=== PATIENT | female | born 1930 | race Hispanic/Latino ===

== ENCOUNTER 2017-11-05 14:20 | Observation (INO) | payer MEDICARE ==
[2017-11-05] MEDS ORDERED: Sodium Chloride 0.9% 1,000 ML IV STA (14:57)
--- NOTE | 2017-11-05 15:20 | ED PDOC ---
Syncope/Near Syncope/Dizziness Time Seen by Provider: 11/05/17 14:32 Chief Complaint (Nursing): Syncope Chief Complaint (Provider): Syncope History Per: Patient History/Exam Limitations: no limitations Onset/Duration Of Symptoms: Other (prior to arrival) Current Symptoms Are (Timing): Still Present Additional Complaint(s): 87 y/o female with a PMHx of vertigo and HTN presenting for evaluation s/p witnessed syncopal episode prior to arrival. Patient states she was at a and after walking in the procession she sat down and began to have coffee. She says it was outside and she spent a lot of time under the sun. Patient states some time after sitting down she began to feel dizzy for a few seconds and then lost consciousness for a few seconds. Episode was witnessed by family. They deny any fall or head injury. Patient denies any chest pain or headache now or prior to episode. She denies any dizziness at this time, but confirms feeling dizzy prior the the syncopal episode. Of note, patient reports a history of leg swelling and states she was started on water pills 4-5 days ago. PMD: Dr. Herber Purcell Past Medical History Reviewed: Historical Data, Nursing Documentation, Vital Signs Vital Signs: Last Vital Signs Temp 97.0 F L 11/05/17 14:26 Pulse 69 11/05/17 14:26 Resp 22 11/05/17 14:26 BP 96/55 L 11/05/17 14:26 Pulse Ox 99 11/05/17 14:26 - Medical History PMH: HTN - Surgical History Surgical History: No Surg Hx - Family History Family History: States: Unknown Family Hx - Allergies Allergies/Adverse Reactions: Allergies Allergy/AdvReac Type Severity Reaction Status Date / Time No Known Allergies Allergy Verified 11/05/17 14:21 Review of Systems ROS Statement: Except As Marked, All Systems Reviewed And Found Negative Cardiovascular: Negative for: Chest Pain Neurological: Positive for: Other (syncope). Negative for: Headache, Dizziness Physical Exam - Reviewed Nursing Documentation Reviewed: Yes Vital Signs Reviewed: Yes - Physical Exam Appears: Positive for: Non-toxic, No Acute Distress Head Exam: Positive for: ATRAUMATIC, NORMAL INSPECTION, NORMOCEPHALIC Skin: Positive for: Normal Color, Warm, Dry. Negative for: Rash Eye Exam: Positive for: EOMI, Normal appearance, PERRL ENT: Positive for: Normal ENT Inspection Neck: Positive for: Normal, Painless ROM, Supple Cardiovascular/Chest: Positive for: Regular Rate, Rhythm. Negative for: Murmur Respiratory: Positive for: Normal Breath Sounds. Negative for: Respiratory Distress Gastrointestinal/Abdominal: Positive for: Normal Exam, Soft. Negative for: Tenderness Back: Positive for: Normal Inspection. Negative for: L CVA Tenderness, R CVA Tenderness, Vertebral Tenderness Extremity: Positive for: Pedal Edema (bilateral pitting edema to feet and ankles ) Neurologic/Psych: Positive for: Alert, Oriented (x3). Negative for: Motor/ Sensory Deficits - Laboratory Results Result Diagrams: 11/05/17 15:20 11/05/17 15:20 - ECG O2 Sat by Pulse Oximetry: 99 (RA) Pulse Ox Interpretation: Normal Medical Decision Making Medical Decision Makin:56 Impression: Syncope and dizziness. Differential diagnoses include, but are not limited to vasovagal syncope, orthostatic HTN, and r/o cardiac arrhythmias, UTI , and dehydration Plan: -CT Head w/o contrast -EKG -BMP -Troponin I -Urine dipstick -CBC w/ differential -Glucose, POC -1LNS -Reevaluation EKG: normal sinus rhythm, normal QRS, no ST elevations, rate 65 bpm 15:30 Patient reports current dizziness and 1 episode of vomiting. -Meclizine 25mg PO -Zofran 4mg IV -Reevaluation 17:49 Date of service: 11/05/2017 PROCEDURE: CT HEAD WITHOUT CONTRAST. HISTORY: syncope COMPARISON: None available. TECHNIQUE: Axial computed tomography images were obtained through the head/brain without intravenous contrast. Radiation dose: Total exam DLP = 855.1 mGy-cm. This CT exam was performed using one or more of the following dose reduction techniques: Automated exposure control, adjustment of the mA and/or kV according to patient size, and/or use of iterative reconstruction technique. FINDINGS: HEMORRHAGE: No intracranial hemorrhage. BRAIN: No mass effect or edema. Atrophy. Chronic microvascular ischemic changes. VENTRICLES: Unremarkable. No hydrocephalus. CALVARIUM: Unremarkable. PARANASAL SINUSES: Unremarkable as visualized. No significant inflammatory changes. MASTOID AIR CELLS: Unremarkable as visualized. No inflammatory changes. OTHER FINDINGS: Dysconjugate gaze. IMPRESSION: No acute intracranial pathology. Age-related changes. Dysconjugate gaze. ----- Scribe Attestation: Documented by Shivam Valverde, acting as a scribe for Jose Scott MD. Provider Scribe Attestation: All medical record entries made by the Scribe were at my direction and personally dictated by me. I have reviewed the chart and agree that the record accurately reflects my personal performance of the history, physical exam, medical decision making, and the department course for this patient. I have also personally directed, reviewed, and agree with the discharge instructions and disposition. Disposition - Clinical Impression Clinical Impression: Syncope, Dizziness, UTI (urinary tract infection) - Patient ED Disposition Is Patient to be Admitted: Yes Discussed With DrScarlett: Russ Oglesby Doctor Will See Patient In The: Hospital Counseled Patient/Family Regarding: Studies Performed, Diagnosis - Disposition Disposition Time: 18:00 Condition: FAIR - Pt Status Changed To: Hospital Disposition Of: Observation - POA Present On Arrival: None
[2017-11-05 15:36] LABS: BASO # 0.1 K/uL (0.0-0.2); BASO % 0.6 % (0.0-2.0); EOS % 0.3 % (0.0-4.0); HEMOGLOBIN 13.6 g/dL (12.0-16.0); LYMPH # 2.4 K/uL (1.0-4.3); LYMPH % 26.4 % (20.0-40.0); MEAN CELL VOLUME 86.9 fl (81.0-99.0); MEAN CORPUSCULAR HGB CONC 34.6 g/dL (33.0-37.0); MEAN PLATELET VOLUME 9.8 fl (7.2-11.7); MONO # 0.6 K/uL (0.0-0.8); MONO % 6.1 % (0.0-10.0); NEUT % 66.6 % (50.0-75.0); NRBC % 0.1 % (0.0-0.0); RBC 4.54 Mil/uL (3.80-5.20); RED CELL DISTRIBUTION WIDTH 13.4 % (11.5-14.5)
[2017-11-05 15:40] LABS: BLOOD UREA NITROGEN 24 mg/dl (7-17); CALCIUM 10.3 mg/dL (8.4-10.2); GFR NON-AFRICAN AMERICAN 53
[2017-11-05 16:58] LABS: SQUAMOUS EPITHIAL 1 /hpf (0-5); URINE BACTERIA RARE (<OCC); URINE BILIRUBIN NEGATIVE (NEGATIVE); URINE BLOOD NEGATIVE (NEGATIVE); URINE CLARITY SLIGHTY-CLOUDY (Clear); URINE COLOR YELLOW (YELLOW); URINE GLUCOSE (UA) NEG (Normal); URINE LEUKOCYTE ESTERASE SMALL Leu/uL (Negative); URINE PROTEIN NEGATIVE (NEGATIVE); URINE UROBILINOGEN 0.2-1.0 mg/dL (0.2-1.0)
--- NOTE | 2017-11-05 17:04 | CARD ---
APPROVED REPORT Date of service: 11/05/2017 EKG Measurement Heart [id number] <Conclusion> Normal sinus rhythm Normal ECG
[2017-11-05] MEDS ORDERED: cefTRIAXone (Rocephin) 1 gm Inj ONE (17:21)
--- NOTE | 2017-11-05 17:51 | CT ---
Date of service: 11/05/2017 PROCEDURE: CT HEAD WITHOUT CONTRAST. HISTORY: syncope COMPARISON: None available. TECHNIQUE: Axial computed tomography images were obtained through the head/brain without intravenous contrast. Radiation dose: Total exam DLP = 855.1 mGy-cm. This CT exam was performed using one or more of the following dose reduction techniques: Automated exposure control, adjustment of the mA and/or kV according to patient size, and/or use of iterative reconstruction technique. FINDINGS: HEMORRHAGE: No intracranial hemorrhage. BRAIN: No mass effect or edema. Atrophy. Chronic microvascular ischemic changes. VENTRICLES: Unremarkable. No hydrocephalus. CALVARIUM: Unremarkable. PARANASAL SINUSES: Unremarkable as visualized. No significant inflammatory changes. MASTOID AIR CELLS: Unremarkable as visualized. No inflammatory changes. OTHER FINDINGS: Dysconjugate gaze. IMPRESSION: No acute intracranial pathology. Age-related changes. Dysconjugate gaze.
[2017-11-06 08:28] VITALS: BP 111/63; RESP 20; TEMP 97.7; O2SAT 94
[2017-11-06] MEDS ORDERED: K-Lyte 25meq EF Tab PO SCH (09:00)
[2017-11-06] MEDS ORDERED: HCTZ/Losartan 12.5/50 Tab PO SCH (09:00)
[2017-11-06] MEDS ORDERED: Omega-3-Acid Ethyl Esters 1 GM Cap PO SCH (09:00)
[2017-11-06] MEDS ORDERED: Pravastatin Sodium 40 MG TAB PO SCH (09:00)
[2017-11-06 09:17] VITALS: PULSE 60
--- NOTE | 2017-11-06 09:33 | CP.PCM.HP ---
History of Present Illness - History of Present Illness History of Present Illness: HPI: 87 YO Female with PMHx of HTN, HLD and vertigo presented to [facility] ED after a syncopal episode. Pt states that she went to a festival/marathon yesterday where she walked for a long period of time under the hot sun. She sat down to drink her coffee when she felt very dizzy and felt faint. Witness by family member, no associated irregular movements, tongue biting, urinary or fecal incontinenc, no head trauma. Pt seen and examined by bedside this AM, son present. States that she feels well this AM, dizziness resolved and would like to go home. Denies chest pain, dyspnea, palpitations, n/v/d/c. Son by bedside states that pt had a carotid u/s a few months ago and everything was normal. PMD: Dr. Purcell PMHx: HTN, HLD, Vertigo SurgHx: denies SH: denies ETOH, smoking and illicit drug use Allergy: NKDA Present on Admission - Present on Admission Any Indicators Present on Admission: No Review of Systems - Constitutional Constitutional: absent: Headache - EENT Eyes: absent: Blurred Vision, Change in Vision - Cardiovascular Cardiovascular: absent: Chest Pain, Dyspnea - Respiratory Respiratory: absent: Cough, Dyspnea - Gastrointestinal Gastrointestinal: absent: Abdominal Pain - Genitourinary Genitourinary: absent: Dysuria - Musculoskeletal Musculoskeletal: absent: Abnormal Gait, Muscle Weakness - Neurological Neurological: Dizziness, Syncope Past Patient History - Past Medical History & Family History Past Medical History?: Yes - Past Social History Smoking Status: Never Smoked Alcohol: None Drugs: Denies - CARDIAC Hx Cardiac Disorders: Yes Hx Hypercholesterolemia: Yes Hx Hypertension: Yes - PULMONARY Hx Respiratory Disorders: No - NEUROLOGICAL Hx Neurological Disorder: No - HEENT Hx HEENT Problems: No - RENAL Hx Chronic Kidney Disease: No - ENDOCRINE/METABOLIC Hx Endocrine Disorders: No - HEMATOLOGICAL/ONCOLOGICAL Hx Blood Disorders: No - INTEGUMENTARY Hx Dermatological Problems: No - MUSCULOSKELETAL/RHEUMATOLOGICAL Hx Musculoskeletal Disorders: No Hx Falls: No - GASTROINTESTINAL Hx Gastrointestinal Disorders: No - GENITOURINARY/GYNECOLOGICAL Hx Genitourinary Disorders: No - PSYCHIATRIC Hx Psychophysiologic Disorder: No Hx Substance Use: No - SURGICAL HISTORY Hx Surgeries: No - ANESTHESIA Hx Anesthesia: No Hx Anesthesia Reactions: No Hx Malignant Hyperthermia: No Has any member of the family had a problem w/ anesthesia?: No Meds Home Medications: Home Medication List Medication Instructions Recorded Confirmed Type Meclizine [Meclizine*] 25 mg PO Q8 PRN #30 tab 11/06/17 Rx Nitrofurantoin Macrocrystals 100 mg PO Q12 #14 cap 11/06/17 Rx [Macrobid] Allergies/Adverse Reactions: Allergies Allergy/AdvReac Type Severity Reaction Status Date / Time No Known Allergies Allergy Verified 11/05/17 14:21 Physical Exam - Constitutional Appears: No Acute Distress - Head Exam Head Exam: NORMAL INSPECTION - Eye Exam Eye Exam: EOMI, Normal appearance - ENT Exam ENT Exam: Mucous Membranes Moist - Respiratory Exam Respiratory Exam: Clear to Auscultation Bilateral. absent: Wheezes - Cardiovascular Exam Cardiovascular Exam: REGULAR RHYTHM, +S1, +S2 Additional comments: no carotid murmur - GI/Abdominal Exam GI & Abdominal Exam: Normal Bowel Sounds, Soft. absent: Tenderness - Extremities Exam Extremities exam: Positive for: normal inspection - Neurological Exam Neurological exam: Alert, Oriented x3 Results - Vital Signs Recent Vital Signs: Last Vital Signs Temp 97.7 F 11/06/17 08:27 Pulse 60 11/06/17 09:15 Resp 20 11/06/17 08:27 BP 111/63 11/06/17 09:15 Pulse Ox 94 L 11/06/17 08:27 - Labs Result Diagrams: 11/05/17 15:20 11/05/17 15:20 Labs: Laboratory Results - last 24 hr 11/05/17 11/05/17 11/05/17 14:32 15:20 15:20 WBC 9.0 RBC 4.54 Hgb 13.6 Hct 39.4 MCV 86.9 MCH 30.0 MCHC 34.6 RDW 13.4 Plt Count 301 MPV 9.8 Neut % (Auto) 66.6 Lymph % (Auto) 26.4 [place] % (Auto) 6.1 Eos % (Auto) 0.3 Baso % (Auto) 0.6 Neut # (Auto) 6.0 Lymph # (Auto) 2.4 [place] # (Auto) 0.6 Eos # (Auto) 0.0 Baso # (Auto) 0.1 Sodium 142 Potassium 3.5 L Chloride 104 Carbon Dioxide 20 L Anion Gap 22 H BUN 24 H Creatinine 1.0 Est GFR ( Amer) > 60 Est GFR (Non-Af Amer) 53 POC Glucose (mg/dL) 113 H Random Glucose 125 H Calcium 10.3 H Troponin I < 0.0120 Urine Color Urine Clarity Urine pH Ur Specific [place] Urine Protein Urine Glucose (UA) Urine Ketones Urine Blood Urine Nitrate Urine Bilirubin Urine Urobilinogen Ur Leukocyte Esterase Urine RBC (Auto) Urine Microscopic WBC Ur Squamous Epith Cells Urine Bacteria Hyaline Casts 11/05/17 16:30 WBC RBC Hgb Hct MCV MCH MCHC RDW Plt Count MPV Neut % (Auto) Lymph % (Auto) [place] % (Auto) Eos % (Auto) Baso % (Auto) Neut # (Auto) Lymph # (Auto) [place] # (Auto) Eos # (Auto) Baso # (Auto) Sodium Potassium Chloride Carbon Dioxide Anion Gap BUN Creatinine Est GFR ( Amer) Est GFR (Non-Af Amer) POC Glucose (mg/dL) Random Glucose Calcium Troponin I Urine Color Yellow Urine Clarity Slighty-cloudy Urine pH 7.0 Ur Specific [place] 1.011 Urine Protein Negative Urine Glucose (UA) Neg Urine Ketones 20 Urine Blood Negative Urine Nitrate Negative Urine Bilirubin Negative Urine Urobilinogen 0.2-1.0 Ur Leukocyte Esterase Small Urine RBC (Auto) 3 Urine Microscopic WBC 15 H Ur Squamous Epith Cells 1 Urine Bacteria Rare Hyaline Casts 3-5 H Assessment & Plan - Assessment and Plan (Free Text) Assessment: Assessment/Plan: 87 YO Female with PMHx of HTN, HLD and vertigo is admitted for syncope. -syncope likely 2/2 to heat stroke, dehydration -EKG NSR with rate of 65; trop x 1 neg -CT head no acute intracranial pathology -pt to follow up outpatient for coratid u/s and further workup per PMD -UA sig for UTI -Pt requesting to go home; per request will d/c patient home with PO abx and meclazine -ER precautions given; pt and family agrees with plan Pt seen and examined with Dr. Oglesby
[2017-11-08] MEDS ORDERED: ALENDRONATE 70 MG TAB PO SCH (09:00)
[2017-11-08] MEDS ORDERED: Ergocalciferol 50,000 Intl Units Cap PO SCH (09:00)
== END 2017-11-06 10:16 | disposition home or self-care (01) ==
LOC: H.ER 14:20 → H.ERHOLD 18:05 → H.TEL 22:36
PROVIDERS: ADMIT Family Medicine; ATTEND Family Medicine
DX: R55 Syncope and collapse (principal); I10 Essential (primary) hypertension; E78.5 Hyperlipidemia, unspecified; N39.0 Urinary tract infection, site not specified; E86.0 Dehydration
CPT/HCPCS: 70450; 80048; 81003; 82948; 84484; 85025; 87040; 87086; 87181; 93005; 96365; 96366; 96375; 96376; 99285; G0378; J0696; J2060; J2405; J7030